=== PATIENT | male | born 2000 | race Caucasian/White ===

== ENCOUNTER 2024-01-04 17:58 | Emergency (ER) | payer OTHER ==
[2024-01-04] MEDS ORDERED: Ibuprofen 200 MG TAB ONE ×3 (18:27→18:32)
[2024-01-04] MEDS ORDERED: Acetaminophen 500 MG TAB ONE (18:27)
[2024-01-04 19:12] LABS: Influenza A by NAA Not Detected (NotDetected); Influenza B by NAA Not Detected (NotDetected); SARS-CoV-2 NAA Rapid Test Not Detected (NotDetected)
== END 2024-01-04 19:35 | disposition home or self-care (01) ==
LOC: CSHERS 17:58
DX: J06.9 Acute upper respiratory infection, unspecified (principal)
CPT/HCPCS: 99283